=== PATIENT | male | born 1990 | race Two or more races ===

== ENCOUNTER 2020-02-03 20:59 | Emergency (ER) | payer MEDICAID ==
[~2020-02-03] VITALS: Ht 175.3 cm; Wt 109.0 kg
[2020-02-03] MEDS ORDERED: KETOROLAC 60MG/2ML VIAL IM ONE (22:00)
[2020-02-03 23:52] VITALS: BP 141/77
== END 2020-02-03 23:53 | disposition home or self-care (01) ==
LOC: ER 20:59
DX: M25.572 Pain in left ankle and joints of left foot (principal); Z91.81 History of falling; R03.0 Elevated blood-pressure reading, without diagnosis of hypertension
CPT/HCPCS: 73610; 93970; 96372; 99284; J1885